=== PATIENT | male | born 1955 | race Caucasian/White ===

== ENCOUNTER 2016-06-04 14:20 | Emergency (ER) | payer OTHER, BC ==
[2016-06-04 13:46] LABS: INFLUENZA A SCREEN NEGATIVE (NEGATIVE); INFLUENZA B SCREEN NEGATIVE (NEGATIVE)
== END 2016-06-04 15:06 | disposition home or self-care (01) ==
LOC: ER 14:20
PROVIDERS: Nurse Practitioner Acute Care
DX: J11.1 Influenza due to unidentified influenza virus with other respiratory manifestations (principal); F17.200 Nicotine dependence, unspecified, uncomplicated; Z88.2 Allergy status to sulfonamides
CPT/HCPCS: 87804; 94640; 99283; A9270-GY